=== PATIENT | male | born 1965 | race Caucasian/White ===

== ENCOUNTER 2024-07-28 16:16 | Observation (INO) | payer MEDICARE ==
[~2024-07-28] VITALS: Ht 170.2 cm; Wt 79.4 kg
[2024-07-28 17:02] LABS: BASOPHILS ABSOLUTE AUTO 0.04 K/mm3 (0.00-0.23); BASOPHILS PERCENT AUTO 1 % (0-2); EOSINOPHILS ABSOLUTE AUTO 0.14 K/mm3 (0.00-0.68); EOSINOPHILS PERCENT AUTO 2 % (0-6); Hematocrit 43.6 % (37.0-53.0); Hemoglobin 14.8 g/dL (13.5-17.5); IMMATURE GRAN ABSOLUTE AUTO 0.02 K/mm3 (0.00-0.10); IMMATURE GRAN PERCENT AUTO 0 % (0-1); LYMPHOCYTES ABSOLUTE AUTO 2.01 K/mm3 (0.84-5.20); LYMPHOCYTES PERCENT AUTO 25 % (21-46); MONOCYTES ABSOLUTE AUTO 0.84 K/mm3 (0.16-1.47); MONOCYTES PERCENT AUTO 10 % (4-13); Mean Corpuscular HGB 28.9 pg (26.0-34.0); Mean Corpuscular HGB Conc 33.9 g/dL (31.5-36.5); Mean Corpuscular Volume 85 fL (80-100); Mean Platelet Volume 9.1 fL (9.1-12.4); NEUTROPHILS ABSOLUTE AUTO 5.02 K/mm3 (1.96-9.15); NEUTROPHILS PERCENT AUTO 62 % (41-73); Platelet Count 287 K/mm3 (150-400); RDW Coefficient Variation 12.7 % (11.7-14.2); RDW Standard Deviation 39.5 fL (35.1-46.3); Red Blood Cell Count 5.12 M/mm3 (4.30-5.90); White Blood Cell Count 8.07 K/mm3 (4.00-11.30)
[2024-07-28 17:22] LABS: Acetaminophen, Random <2.0 ug/mL (10.0-30.0); Alanine Aminotransfer (ALT/SGP 24 U/L (12-78); Albumin, Blood 4.3 g/dL (3.4-5.0); Albumin/Globulin Ratio 1.2 (0.8-1.8); Alk Phos 78 U/L (50-136); Anion Gap 11 mmol/L (3-11); Aspartate Aminotrans (AST/SGOT 21 U/L (12-37); Bilirubin, Total 0.6 mg/dL (0.1-1.0); Blood Urea Nitrogen 19 mg/dL (8-24); CO2, Blood 24 mmol/L (21-32); Calcium, Blood 9.5 mg/dL (8.5-10.1); Chloride, Blood 109 mmol/L (98-108); Creatinine, Blood 0.95 mg/dL (0.60-1.20); Ethanol (Alcohol), Blood, Med <3 mg/dL; Globulin, Blood 3.5 g/dL (2.2-4.0); Glomerular Filtration Rate 92 (60-); Glucose, Blood 95 mg/dL (70-99); Salicylate <1.7 mg/dL (2.8-20.0); Sodium, Blood 140 mmol/L (136-145); Total Protein, Blood 7.8 g/dL (6.4-8.2)
[2024-07-28 17:25] LABS: Source, Urine Clean Catch
[2024-07-28 17:28] LABS: Appearance, Urine Clear (Clear); Bilirubin, Urine Neg (Neg); Blood, Urine Neg (Neg); Color, Urine Yellow (P-Yellow); Glucose Qualitative, Urine Neg (Neg); Ketones, Urine 2+ (Neg); Leukocyte Esterase, Urine 1+ (Neg); Nitrite, Urine Neg (Neg); Protein, Urine Neg (Neg); Specific Gravity, Urine 1.025 (1.003-1.022); Urobilinogen, Urine NORM (Normal)
[2024-07-28 17:36] LABS: Bacteria Few /hpf; Red Blood Cells, Urine 0-2 /hpf (0-2); Squamous Epithelial Cells Few /hpf (Few)
[2024-07-28 17:39] LABS: U Amphetamine Screen Not Detected; U Barbituate Screen Not Detected; U Benzodiazapine Screen Not Detected; U Buprenorphine Screen Not Detected; U Cannabinoids Screen DETECTED; U Cocaine Screen Not Detected; U Methadone Screen Not Detected; U Methamphetamine Screen Not Detected; U Opiates Screen Not Detected; U Oxycodone Screen Not Detected; U Phencyclidine Screen Not Detected
[2024-07-28 18:14] LABS: Influenza A, PCR NEGATIVE (NEGATIVE); Influenza B, PCR NEGATIVE (NEGATIVE); Resp Syncytial Virus, PCR NEGATIVE (NEGATIVE); SARS-Cov-2 (COVID-19) PCR, MMC NEGATIVE (NEGATIVE)
== END 2024-07-28 21:10 | disposition other institution (70) ==
LOC: ER 16:16 → EOR 16:17
PROVIDERS: Student in an Organized Health Care Education/Training Program; ADMIT Emergency Medicine
DX: F32.A Depression, unspecified (principal); R45.851 Suicidal ideations; F43.10 Post-traumatic stress disorder, unspecified
CPT/HCPCS: 0241U; 80053; 80320; 81001; 85025; 87086; 93005; 93010; 99285-25; G0378; G0480

== ENCOUNTER 2024-07-28 17:42 | Inpatient (IN) | payer MEDICARE ==
[~2024-07-28] VITALS: Ht 170.2 cm; Wt 79.4 kg
[2024-07-28] MEDS ORDERED: FLU VACC TS2024-25(6MOS UP)/PF 45 MCG/0.5 ML SYRINGE IM SCH (19:20)
[2024-07-28] MEDS ORDERED: TraZODone HCl 50 MG Tab PO PRN (19:20)
--- NOTE | 2024-07-28 21:42 | NUR ---
Papi De Luna and Vilma Rueda inventoried the patients items with the patient present. Valuables were put into the safe with a inventory sheet on it and his clothes are currently being washed.
[2024-07-28 22:01] VITALS: BP 122/78
--- NOTE | 2024-07-28 22:18 | NUR ---
PATIENT ARRIVED ON THE UNIT AT 2110 ON 07/28/24. HE STATES THAT HE WAS PRESCRIBED EFFEXOR AND ZYPREXA, WHICH HE TOOK WITH GOOD EFFECT UNTIL HE RAN OUT SIX MONTHS AGO. HE HAS NOT SEEN A PROVIDER IN THAT TIME AND STATES HE COULD NOT AFFORD THE MEDICATIONS. PATIENT WENT THROUGH ADMISSION PROCESS AND WAS GIVEN A SNACK PER HIS REQUEST. HE WAS THEN SHOWN HIS ROOM AND WENT TO BED. HE WAS GIVEN PRN TRAZODONE AND EAR PLUGS.
--- NOTE | 2024-07-29 02:51 | NUR ---
PATIENT UP AT 0250 C/O "ONE NOSTRIL DOESN'T WORK, AND THE OTHER ONE IS PLUGGED FOR SOME REASON". HE WOULD LIKE TO HAVE SOMETHING PRESCRIBED TO "OPEN UP THE NOSTRIL". HE STATES THAT HE GOT SOMETHING IN THE PAST FROM A DOCTOR, AND SAVED THE BOX, BUT IT IS IN HIS VAN AND HE HAS NO ACCESS TO IT. HE MOVED INTO THE SENSORY ROOM TO USE THE FURNITURE THERE AND EXPRESSED HOPES THAT LYING IN A DIFFERENT POSITION WOULD BE HELPFUL TONIGHT.
--- NOTE | 2024-07-29 04:07 | NUR ---
PATIENT ARRIVED ON [facility] AT 2110 THIS SHIFT. HE WAS COOPERATIVE WITH THE ADMISSION PROCESS. HE REQUESTED AND WAS GIVEN A SNACK AND DRINK. HE WAS COMPLIANT WITH MEDICATIONS. HE STATED THAT HE TOOK ZYPREXA AND EFFEXOR UNTIL SIX MONTHS AGO, WHEN HE RAN OUT AND "I DIDN'T HAVE THE MONEY TO GET THEM FILLED". HE ALSO ADMITS TO NOT SEEING HIS PCP IN "I DON'T KNOW HOW LONG, A LONG TIME". HE USES THE [facility] FOR PRIMARY CARE AND TRIED TO GO THERE FOR MENTAL HELP BUT FOUND IT CLOSED, SO HE CALLED AN AMBULANCE, PER PATIENT, AND CAME TO [facility] ED. HE STATED "I'M LOOKING FORWARD TO LEARNING NEW WAYS TO COPE. RIGHT NOW, I COPE BY SLEEPING, SO I SLEEP TOO MUCH." DURING THIS SHIFT, HE COMPLAINED OF "SINUS TROUBLE" AND STATED THAT HE USUALLY TAKES A MEDICATION THAT HE LEFT IN HIS VAN "WHEN THE POLICE CAME". HE DOES NOT KNOW THE NAME OF THE MEDICATION. HE RESTED IN HIS ROOM FOR A TIME, THEN SWITCHED TO A PRIVATE ROOM DUE TO ROOMMATE SNORING, THEN SWITCHED TO SENSORY ROOM DUE TO SINUS ISSUES. HE FOUND THE SENSORY ROOM BEANBAG CHAIR COMFORTABLE ENOUGH TO REST. HE HAD NO S/SX SUICIDAL IDEATION OR SELF HARM THIS SHIFT. CONTINUING TO MONITOR FOR SAFETY WITH Q15 MINUTE CHECKS.
[2024-07-29 08:02] VITALS: BP 128/78
--- NOTE | 2024-07-29 09:40 | NUR ---
CALL FROM MOM PT MOM CALLED W/ QUESTIONS REGARDING PT ABILITY TO LEAVE IF HE DESIRED. EDUCATED MOM ON PT SAFETY AND PROVIDER WILL DISCUSS W/ PT PLANS FOR TREATMENT AND DISCHARGE.
--- NOTE | 2024-07-29 10:09 | NUR ---
PT UP AT 0730 THIS AM. WALKED THE HALLS THEN WENT BACK TO ROOM. UP FOR BREAKFAST. INTERVIEWED PT. HE CLAIMS HE IS ALWAYS SI ALL THE TIME. DOESN'T HAVE A PLAN AT THIS TIME. STATED HE DIDN'T SLEEP WELL BECAUSE HE IS 'HERE'. HE DOESN'T WANT TO BE HERE. HE SAID HE CAME BECAUSE HE NEEDS MEDICATION.[place] ASKED HIM IF HE WOULD CONTINUE TO TAKE MEDS AND REFILL NEEDED TO KEEP WELL. HE SAID YES , THAT'S WHY I WENT TO THE [place] AND THEY WERE CLOSED AND COULD NOT HELP ME. STATES HE HAS NO HOBBIES, HE DOESN'T LIKE TV OR READING. STATES HE STAYS IN HIS "LITTLE HOUSE". HAS NO FRIENDS. HAS PARENTS BUT HE SAID HE DOESN'T TALK TO THEM MUCH. HE STATED HE IS SHY. INTERVIEW CONTINUED HIS VOICE TONE BECAME ANGIER. ASKED HIM IF HE WAS ANGRY AND HE SAID 'YES' BECAUSE HE IS HERE. CLAIMS HE HAS PTSD FROM CHILDHOOD AND NOT . HE SAID' I HAVE NO REGULAR SOCIAL NORM SITUATION, I AM ALONE.' LET PT KNOW THE THINGS THAT HE NEEDS TO DO TO BE HERE IN THE PROGRAM. SHOWER DAILY TAKE MEDS, PARTICIPATE IN GROUPS, EAT MEALS AND TO SLEEP GOOD, HE SAID 'OK'. WILL CONTINUE TO MONITOR.
[2024-07-29] MEDS ORDERED: Venlafaxine HCl 37.5 MG CapCR PO ONE (12:50)
[2024-07-29] MEDS ORDERED: OLANZapine 5 MG Tab PO ONE (12:50)
--- NOTE | 2024-07-29 17:09 | NUR ---
SHIFT SUMMARY. AFTER PT SEEN DR DANIELSON HIS ANGRY MANOR CHANGED. HE WAS MORE TALKATIVE AND LESS ANGER PRESENT. HE WENT INTO THE TV ROOM AND WATCHED FOOTBALL AND INTERACTED WITH PEERS. STARTED OLANZIPINE AND EFFEXOR TODAY. IS ALERT AND COOPERATIVE. STILL SAYS HE IS SI ALL THE TIME IT NEVER GOES AWAY. NO PLAN AT THIS TIME. SPOKE TO HIS MOTHER TODAY ON THE PHONE. FELT BETTER AFTER TALKING WITH HER. WILL CONTINUE TO MONITOR.
--- NOTE | 2024-07-30 04:12 | NUR ---
PATIENT WAS IN ROOM RESTING QUIETLY WITH EYES CLOSED AT THE BEGINNING OF THE SHIFT. HE DID NOT AWAKEN WHEN STAFF ASKED IF HE WANTED A SNACK. HE DID AWAKEN FOR EVENING MEDICATIONS AND WAS THANKFUL TO TAKE HIS TRAZODONE. HE STATED, "I'M REALLY SLEEPY TODAY". HE TOOK THE MEDICATION AND WENT RIGHT BACK TO RESTING. HE RESTED QUIETLY WITH EYES CLOSED THROUGHOUT THE SHIFT, WEARING EAR PLUGS DUE TO SENSORY ISSUES SECONDARY TO PTSD, PER PATIENT. HE HAD NO S/SX SUICIDAL IDEATION OR SELF HARM THIS SHIFT. CONTINUING TO MONITOR FOR SAFETY WITH Q15 MINUTE CHECKS.
[2024-07-30 08:20] VITALS: BP 121/82
[2024-07-30] MEDS ORDERED: Venlafaxine HCl 37.5 MG CapCR PO SCH (09:00)
[2024-07-30] MEDS ORDERED: OLANZapine 5 MG Tab PO SCH (09:00)
--- NOTE | 2024-07-30 13:08 | NUR ---
Pt Insurance Info Per SW request. Assisted pt with connected with [employer] and Enrollment for [employer]. Pt spoke with advocate via speaker phone and was able to intitate the application process.
--- NOTE | 2024-07-30 17:04 | NUR ---
SHIFT SUMMARY: PT ALERT, ORIENTED AND COOPERATIVE. DENIES SI, HI AND AVH. PT SLEPT THE MAJORITY OF THE DAY. UPDATED BUSINESS LEADER WITH HIS MOTHER AND PROVIDED THE PHONE. PT CALLED HIS MOM AND RETURNED TO HIS ROOM.
[2024-07-30 20:30] VITALS: BP 116/84
[2024-07-31] MEDS ORDERED: DiphenhydrAMINE HCl 50 MG Cap PO ONE ×2 (01:05→21:05)
--- NOTE | 2024-07-31 04:20 | NUR ---
PATIENT WAS IN HIS ROOM FOR MOST OF THE SHIFT. HE STATED THAT HE WAS SLEEPY. HE WAS RATHER STANDOFFISH BUT COOPERATIVE WITH CARES, INCLUDING EVENING MEDICATION. HE GOT UP X1 TO STATE THAT HE HAS ONE "PERMANENTLY BLOCKED NOSTRIL" AND THAT THE OTHER ONE IS "GETTING CLOGGED" AND "i CAN'T BREATHE" DUE TO "THE DETERGENT OR SPRAY OR SOMETHING YOU GUYS ARE DOING". THE PREVIOUS NIGHT, IT HELPED HIM TO SLEEP IN THE SENSORY ROOM AND THAT WAS OFFERED AGAIN. HE STATED, "WHEN I GOT UP, MY TORSO WAS ANGLED TO THE SIDE BECAUSE OF THAT BEANBAG CHAIR". HE STOOD STAFF OFFERED EXTRA PILLOWS, HOT TEA AND OTHER COPING SKILLS. HE REFUSED THEM ALL. BEAUTY OPERATOR APPRENTICE CALLED AND GOT ONE TIME ORDER FOR BENADRYL 50 MG, WHICH WAS EFFECTIVE. HE WENT BACK TO BED AND WAS NOTED TO BE RESTING QUIETLY WITH EYES CLOSED AND RESPIRATIONS CONFIRMED FOR THE REMAINDER OF THE SHIFT. HE HAD NO S/SX SUICIDAL IDEATION OR SELF HARM THIS SHIFT. CONTINUING TO MONITOR FOR SAFETY WITH Q15 MINUTE CHECKS.
[2024-07-31 08:02] VITALS: BP 121/82
[2024-07-31] MEDS ORDERED: OLANZapine 5 MG Tab PO ONE (12:55)
--- NOTE | 2024-07-31 18:31 | NUR ---
SHIFT SUMMARY PT A/O X4; PLEASANT AND COOPERATIVE WITH CARE. HE REPORTS SI BUT DOES NOT HAVE AN ACCESSIBLE PLAN OR INTENT. HE DENIES HI OR ANY HALLUCINATIONS. PT PREFERS TO STAY IN HIS ROOM, BUT HAS ATTENDED ALL GROUPS AND MEALS. [facility] AND HIS [facility]ICLE IS CURRENTLY IN THE [place] PARKING LOT. THE PT MAY POSSIBLY DC HOME TOMORROW. PT DENIES ANY NEEDS AND IS MONITORED VIA Q15 CHECKS FOR SAFETY.
[2024-07-31 22:11] VITALS: BP 125/78
--- NOTE | 2024-07-31 23:28 | NUR ---
PROGRESS NOTE: PATIENT WAS IN GROUP ROOM IN [facility], WATCHING A MOVIE, AT THE BEGINNING OF THE SHIFT. HE JOINED THE GROUP IN THE DINING ROOM FOR SNACK. HE WAS PLEASANT AND COOPERATIVE WITH CARES. HE WAS COMPLIANT WITH MEDICATIONS. HE WENT TO BED AFTER SNACK, BUT GOT UP AND STATED THAT HE COULD NOT SLEEP DUE TO ROOMMATE SNORING. HE REQUESTED BENADRYL TO HELP HIM FEEL LESS ANXIOUS/SLEEPY. WAS CALLED AND ONE TIME ORDER GIVEN FOR BENADRYL 50MG PO X1 NOW. PATIENT TOOK THE BENADRYL AND WENT BACK TO HIS ROOM. HE SOON CAME OUT AGAIN AND ASKED IF HE COULD MOVE TO ANOTHER ROOM. HE WAS MOVED FROM 605D TO 603D PER HIS REQUEST. STAFF HELPED MOVE HIS ITEMS. HE THEN SETTLED IN AND AT THIS TIME IS RESTING QUIETLY WITH EYES CLOSED AND RESPIRATIONS CONFIRMED. HE HAS DENIED SI THIS EVENING. CONTINUING TO MONITOR FOR SAFETY WITH Q15 CHECKS.
--- NOTE | 2024-08-01 05:12 | NUR ---
FOLLOW UP TO PROGRESS NOTE ([employer] WAS DOWN TONIGHT): PATIENT CONTINUED TO REST WITH EYES CLOSED AND RESPIRATIONS CONFIRMED. HE HAD NO S/SX SUICIDAL IDEATION OR SELF HARM THROUGHOUT THE SHIFT. CONTINUING TO MONITOR FOR SAFETY WITH Q15 CHECKS.
[2024-08-01 08:06] VITALS: BP 125/84
[2024-08-01] MEDS ORDERED: OLANZapine 5 MG Tab PO SCH (09:00)
[2024-08-01] MEDS ORDERED: OLAN5 PO (10:51)
[2024-08-01] MEDS ORDERED: EFFEXOR XR37.5 MG PO (10:52)
--- NOTE | 2024-08-01 13:02 | NUR ---
SUMMARY PT A/O X4; PLEASANT AND COOPERATIVE WITH CARE. PT DENIES SI, HI, OR ANY HALLUCINATIONS. PT DISCHARGED HOME AND [facility] [place]. NEW MEDICATIONS FAXED TO [facility] IN [place]. PT GIVEN PHONE NUMBER TO CALL THE [facility] TO INQUIRE ABOUT INSURANCE COVERAGE. BELONGINGS RETURNED AND PT PICKED UP VIA [employer] TO BE [facility].
== END 2024-08-01 13:05 | disposition home or self-care (01) | DRG 882 ==
LOC: BHU 17:42
PROVIDERS: ADMIT Psychiatry & Neurology Psychiatry
DX: F43.12 Post-traumatic stress disorder, chronic (principal); R45.851 Suicidal ideations; F32.A Depression, unspecified; R48.3 Visual agnosia
CPT/HCPCS: A9270